=== PATIENT | male | born 1965 | race Hispanic/Latino ===

== ENCOUNTER 2023-06-26 18:26 | Emergency (ER) | payer MEDICAID, OTHER, SELFPAY ==
[~2023-06-26] VITALS: Ht 180.3 cm; Wt 140.9 kg
[2023-06-26 18:47] VITALS: TEMP 98.7
[2023-06-26] MEDS ORDERED: KETOROLAC 60MG 2ML VIAL IM ONE (22:45)
[2023-06-27] MEDS ORDERED: CYCL-707 PO (00:43)
[2023-06-27] MEDS ORDERED: LIDO5DIS41 TD (00:43)
[2023-06-27 00:50] VITALS: BP 131/84; O2SAT 99
== END 2023-06-27 00:52 | disposition home or self-care (01) ==
LOC: EDBD 18:26 → M ED 18:26
DX: M54.50 Low back pain, unspecified (principal); M25.551 Pain in right hip; M25.552 Pain in left hip; V49.40XA Driver injured in collision with unspecified motor vehicles in traffic accident, initial encounter; I10 Essential (primary) hypertension; Z96.643 Presence of artificial hip joint, bilateral
CPT/HCPCS: 72131; 73521; 96372; 99284; J1885

== ENCOUNTER → 2023-07-26 | Outpatient (REF) | payer OTHER ==
[~2023-07-26] MED LIST: CYCL-707 PO; LIDO5DIS41 TD
[2023-07-26 14:35] LABS: CHOLESTEROL RISK RATIO 4.64 (<5); HDL CHOLESTEROL 32.5 MG/DL (>40); LDL CHOLESTEROL 97.9 MG/DL (<100); NON-HDL-C 118.5 MG/DL
== END ==
LOC: M LAB REF 13:27
PROVIDERS: ATTEND Nurse Practitioner Family
DX: E78.5 Hyperlipidemia, unspecified (principal)

== ENCOUNTER → 2024-05-08 | Outpatient (CLI) | payer OTHER | LOC: M LAB 14:39 | PROVIDERS: ATTEND Urology | DX: N40.0 Benign prostatic hyperplasia without lower urinary tract symptoms (principal) ==